=== PATIENT | female | born 1950 | race Caucasian/White ===

== ENCOUNTER → 2023-12-19 07:26 | Outpatient (REF) | payer MEDICARE, OTHER, SELFPAY ==
[2023-12-19 09:02] LABS: % Basophils 0.6 % (0-2); % Eosinophils 1.4 % (0-6); % Immature Granulocytes 0.2 % (0-0.5); % Monocytes 7.9 % (1.7-9.3); % Neutrophils 41.9 % (42.2-75.2); Absolute Eosinophils 0.1 10^3/uL (0-0.7); Absolute Lymphocytes 2.4 10^3/uL (1.2-3.4); Absolute Monocytes 0.4 10^3/uL (0.1-0.6); Absolute Neutrophils 2.1 10^3/uL (1.4-6.5); Hematocrit 38.8 % (37.0-47.0); Hemoglobin 13.7 g/dL (12.0-16.0); Mean Corp Hgb Conc. 35.3 g/dL (33.0-37.0); Mean Corpuscular Hgb 33.1 pg (27.0-31.0); Mean Corpuscular Volume 93.7 fL (81.0-99.0); Mean Platelet Volume 9.7 fL (7.4-10.4); Nucleated Red Blood Cells % 0 %; Platelet Count 233 10^3/uL (130-400); Red Blood Cell Count 4.14 10^6/uL (4.20-5.40); Red Cell Dist. Width 12.5 % (11.5-14.5)
[2023-12-19 09:25] LABS: ALT (SGPT) 18 U/L (0-35); AST (SGOT) 27 U/L (14-36); Albumin 4.5 g/dl (3.5-5.0); Alkaline Phosphatase 67 U/L (38-126); Blood Urea Nitrogen 17 mg/dl (7-17); Calcium 9.8 mg/dl (8.4-10.2); Carbon Dioxide 27 mmol/L (22-30); Chloride 101 mmol/L (98-107); Glucose 92 mg/dl (70-99); HDL Cholesterol 100 mg/dl; LDL Cholesterol, Calculated 57 mg/dl; Sodium 136 mmol/L (135-145); Total Bilirubin 0.6 mg/dl (0.2-1.3); Total Cholesterol 173 mg/dl (50-199); Triglyceride 84 mg/dl (10-149); Very Low Density Lipoprotein 16 mg/dl (0-30); eGFR > 60.00
[2023-12-19 09:30] LABS: Potassium 4.9 mmol/L (3.5-5.1)
== END ==
LOC: HWLAB 07:26
PROVIDERS: ATTENDING PHYSICIAN Family Medicine
DX: E78.00 Pure hypercholesterolemia, unspecified (principal); Z00.00 Encounter for general adult medical examination without abnormal findings; D72.819 Decreased white blood cell count, unspecified
CPT/HCPCS: 36415; 80053; 80061; 85025

== ENCOUNTER → 2024-05-15 15:30 | Outpatient (REF) | payer OTHER, SELFPAY | LOC: HWRAD 15:30 | PROVIDERS: ATTENDING PHYSICIAN Family Medicine | DX: S80.01XA Contusion of right knee, initial encounter (principal) | CPT/HCPCS: 73564 ==

== ENCOUNTER → 2024-12-30 07:43 | Outpatient (REF) | payer MEDICARE, OTHER, SELFPAY ==
[2024-12-30 09:20] LABS: % Basophils 0.7 % (0-2); % Eosinophils 2.4 % (0-6); % Lymphocytes 46.3 % (20.5-51.1); % Monocytes 8.4 % (1.7-9.3); % Neutrophils 42.2 % (42.2-75.2); Absolute Eosinophils 0.1 10^3/uL (0-0.7); Absolute Lymphocytes 1.9 10^3/uL (1.2-3.4); Absolute Monocytes 0.4 10^3/uL (0.1-0.6); Absolute Neutrophils 1.8 10^3/uL (1.4-6.5); Hemoglobin 13.1 g/dL (12.0-16.0); Mean Corp Hgb Conc. 33.6 g/dL (33.0-37.0); Mean Corpuscular Hgb 32.2 pg (27.0-31.0); Mean Corpuscular Volume 95.8 fL (81.0-99.0); Mean Platelet Volume 9.9 fL (7.4-10.4); Nucleated Red Blood Cells % 0 %; Platelet Count 203 10^3/uL (130-400); Red Blood Cell Count 4.07 10^6/uL (4.20-5.40); Red Cell Dist. Width 12.3 % (11.5-14.5); White Blood Cell Count 4.2 10^3/uL (4.8-10.8)
[2024-12-30 09:48] LABS: ALT (SGPT) 18 U/L (0-35); AST (SGOT) 24 U/L (14-36); Albumin 4.3 g/dl (3.5-5.0); Alkaline Phosphatase 59 U/L (38-126); Blood Urea Nitrogen 15 mg/dl (7-17); Calcium 9.6 mg/dl (8.4-10.2); Carbon Dioxide 28 mmol/L (22-30); Chloride 106 mmol/L (98-107); Glucose 93 mg/dl (70-99); HDL Cholesterol 90 mg/dl; LDL Cholesterol, Calculated 60 mg/dl; Potassium 4.6 mmol/L (3.5-5.1); Sodium 141 mmol/L (135-145); Total Bilirubin 0.7 mg/dl (0.2-1.3); Total Cholesterol 171 mg/dl (50-199); Total Protein 6.6 g/dl (6.3-8.2); Triglyceride 107 mg/dl (10-149); Very Low Density Lipoprotein 21 mg/dl (0-30); eGFR > 60.00
== END ==
LOC: HWLAB 07:43
PROVIDERS: ATTENDING PHYSICIAN Family Medicine
DX: E78.00 Pure hypercholesterolemia, unspecified (principal); Z00.00 Encounter for general adult medical examination without abnormal findings
CPT/HCPCS: 36415; 80053; 80061; 85025

== ENCOUNTER 2025-01-28 08:52 | Emergency (ER) | payer MEDICARE, OTHER, SELFPAY ==
[2025-01-28 08:54] VITALS: BP 97/53
--- NOTE | 2025-01-28 08:59 | ED.GENMED ---
Addendum entered and electronically signed by Iker Rincon PA-C 01/29/25 07:12:
Both tubes of blood cultures demonstrate gram-negative bacilli. Spoke with patient. Advised that she return soon as possible for further evaluation
Original Note:
History of Present Illness
General
Chief Complaint: Urinary Symptoms
Time Seen by Provider: 01/28/25 08:59
History of Present Illness
History of Present Illness:
TIME OF INITIAL ENCOUNTER: 9 AM
HPI: The patient presents with dysuria ongoing for the past 4 days. She does have some subjective fevers and chills. She has a general unwell feeling including some lightheadedness and dizziness. She has some myalgias as well. She has had some
high blood pressure readings for which she saw eye specialist and lowered her salt intake but does not take any antihypertensives. She had times noted some blood in the urine. She has no back pain or abdominal pain.
EXAM:
GENERAL: Well appearing in no distress
HEENT: Moist oral mucosa
CARDIOVASCULAR: No murmurs, normal heart rate, regular rhythm, No chest wall tenderness
PULMONARY: No respiratory distress, breath sounds are clear and equal
ABDOMEN: Soft with no peritoneal signs, no tenderness, no suprapubic tenderness
NEUROLOGIC: Excellent strength all extremities, no coordination deficits
PSYCHIATRIC: Appropriate mental status, normal insight and judgement
EXTREMITIES: Nontender, no edema, moves all extremities equally
SKIN: No rash, no lesions
NUMBER AND COMPLEXITY OF PROBLEMS ADDRESSED AT THE ENCOUNTER
� Chronic conditions affecting care: High blood pressure not requiring antihypertensives
� Acute Exacerbation and/or Progression of Chronic Illness: This is an acute problem
� Differential Diagnosis includes: UTI, sepsis, bacteremia, very low suspicion for ureteral stone as the patient has no pain
AMOUNT AND/OR COMPLEXITY OF DATA TO BE REVIEWED AND ANALYZED
� I performed an independent evaluation of and my interpretation is:
EKG:
CT:
X-rays:
Laboratory Studies: White count and lactic are normal, very mild creatinine elevation of 1.1
Other:
� Review of other/old records: I reviewed records, the patient had a colonoscopy 2019
� Clinical information was obtained by an independent historian: None needed
� Prescriptions/Medications Considered but not given:
� Further testing considered but not performed:
RISK OF COMPLICATIONS AND/OR MORBIDITY OR MORTALITY OF PATIENT MANAGEMENT
� Social determinants of health affecting care: Lives at home
� Discussion with other providers:
� Escalation of care: The patient presents with dysuria along with general unwell feeling and subjective fevers and chills. Initial blood pressure noted to be low at 97/53 however on reevaluation shortly after arrival without
any intervention, blood pressure at 118/55. She is found to be at least borderline febrile. Will obtain lab and give Tylenol and also give IV fluids.
ANY OTHER UPDATES:
11:40 AM: Although patient has had some borderline low blood pressure readings, she overall feels much improved with a liter of IV fluid. Encourage patient return here if worse or other concerns. We gave a dose of Rocephin and sent a prescription
for Keflex to her pharmacy for UTI. She is well-appearing on reassessment prior to discharge.
Phy Exam
Physical Exam
Physical Exam:
See HPI
Course
Orders/Labs/Results
Orders:
Orders
01/28/25 09:10
0.9% Sodium Chloride 1000 ml [Nss] 1,000 ml IV BOLUS
Acetaminophen [Tylenol] 1,000 mg PO NOW STA
01/28/25 09:23
Complete Blood Count/With Diff Urgent
Comprehensive Metabolic Panel Urgent
Lactic Acid Q4H
Comment: CANCEL 2nd LACTIC ACID IF 1st LACTIC ACID IS LESS THAN 2
Urinalysis Reflex To Culture Urgent
Date Specimen was Collected: 01/28/25
Time Specimen was Collected: 09:08
Urine Microscopic Reflex Cult Urgent
Blood Culture Q30M
DARIUSZ Source: Blood/Venous
Specimen Description:
Urine Culture Urgent
DARIUSZ Source: U
Specimen Description:
Date Specimen was Collected: 01/28/25
Time Specimen was Collected: 09:08
01/28/25 09:24
Blood Culture Q30M
DARIUSZ Source: Blood/Venous
Specimen Description:
01/28/25 10:50
CefTRIAXone [Rocephin] 1,000 mg IV NOW STA
Abnormal Lab Results
01/28/25
09:23
RBC 3.63 L 10^6/uL
(4.20-5.40)
Hgb 11.8 L g/dL
(12.0-16.0)
Hct 33.4 L %
(37.0-47.0)
MCH 32.5 H pg
(27.0-31.0)
Sodium 130 L mmol/L
(135-145)
BUN 19 H mg/dl
(7-17)
Creatinine 1.1 H mg/dL
(0.6-1.0)
Glucose 138 H mg/dl
(70-99)
Urine Ketones 1+ A
(Negative)
Ur Occult Blood Reflex 4+ A
(Negative)
Leukocyte Esterase Rfl 3+ A
(Negative)
Urine Albumin (Reflex) 3+ A
(Neg - Trace)
01/28/25 09:23
01/28/25 09:23
Vital Signs
Blood pressure: 118/55
Initial and Last Documented VS:
Initial Vital Signs
Temp Pulse Resp BP Pulse Ox
37.9 C 89 20 97/53 96
01/28/25 08:54 01/28/25 08:54 01/28/25 08:54 01/28/25 08:54 01/28/25 08:54
Last Documented Vital Signs
Temp Pulse Resp BP Pulse Ox
37.9 C 67 16 105/60 96
01/28/25 08:54 01/28/25 11:11 01/28/25 11:11 01/28/25 11:27 01/28/25 11:11
*Critical Care Note
Total Time (30-74mins, 75-104mins- exclusive of procedures): Not Applicable
ED Attending Note
-
Portions of this chart may have been created with voice recognition software.� Occasional wrong word or��sound alike� substitutions may have occurred due to the inherent limitations of voice recognition software.
Discharge Plan
Departure
Patient Disposition: Home (Routine Discharge)
Date of Disposition: 01/28/25
Time of Disposition: 11:37
Patient with high blood pressure during this ER visit?: Yes
Discharge Problem:
Urinary tract infection
Instructions: Urinary Tract Infection, Adult (DC)
Prescriptions:
New
cephalexin 500 mg tablet
500 mg PO TID Qty: 21 0RF
Referrals:
Terrie Moore, DO [Family Provider] -
Activity Restrictions/Additional Instructions:
Your white blood cell count and lactic acid levels are both normal. Your kidney function is borderline impaired and we did give you IV fluids. Try to stay hydrated. Return here if worse. The urinalysis does suggest signs of infection here.
Urine culture pending. Follow-up with your primary care doctor.
Interventions
Interventions:
*Risk Screen - Suicide Last Done: 01/28/25 08:54
*General Assessment Last Done: 01/28/25 08:54
*Neglect/Abuse Screening Last Done: 01/28/25 08:54
*ED- Fall Risk Assessment Last Done: 01/28/25 09:33
*ED COVID-19 Vaccine History Last Done: 01/28/25 09:33
ED-Female Genitourinary Assessment Last Done: 01/28/25 09:34
Discharge Date and Time
Print Language: BULGARIAN
[2025-01-28] MEDS: NSS 1000 IV (09:26)
[2025-01-28] MEDS: TYLENOL 1000 MG PO (09:30)
[2025-01-28 09:33] VITALS: BMI 27.2
[2025-01-28 09:34] VITALS: BP 118/55
[2025-01-28 09:48] LABS: ALT (SGPT) 27 U/L (0-35); AST (SGOT) 26 U/L (14-36); Albumin 3.8 g/dl (3.5-5.0); Alkaline Phosphatase 89 U/L (38-126); Blood Urea Nitrogen 19 mg/dl (7-17); Calcium 8.9 mg/dl (8.4-10.2); Carbon Dioxide 23 mmol/L (22-30); Chloride 103 mmol/L (98-107); Estimated Creatinine Clearance 42 ml/min; Glucose 138 mg/dl (70-99); Potassium 4.3 mmol/L (3.5-5.1); Sodium 130 mmol/L (135-145); Total Bilirubin 1.2 mg/dl (0.2-1.3); Total Protein 6.4 g/dl (6.3-8.2); eGFR 53.39
[2025-01-28 09:53] LABS: Hematocrit 33.4 % (37.0-47.0); Hemoglobin 11.8 g/dL (12.0-16.0); Mean Corp Hgb Conc. 35.3 g/dL (33.0-37.0); Mean Corpuscular Hgb 32.5 pg (27.0-31.0); Mean Platelet Volume 9.7 fL (7.4-10.4); Platelet Count 154 10^3/uL (130-400); Red Blood Cell Count 3.63 10^6/uL (4.20-5.40); Red Cell Dist. Width 12.1 % (11.5-14.5)
[2025-01-28 10:00] VITALS: BP 101/55
[2025-01-28 10:36] LABS: Urine Albumin 3+ (Neg - Trace); Urine Bilirubin Negative (Negative); Urine Character Cloudy (Clear); Urine Color Yellow; Urine Glucose Negative (Negative); Urine Ketone 1+ (Negative); Urine Leukocyte 3+ (Negative); Urine Nitrite Negative (Negative); Urine Occult Blood 4+ (Negative); Urine Urobilinogen 1+ (Neg - 1+)
[2025-01-28] MEDS: ROCEPHIN 1000 MG IV (11:07)
[2025-01-28 11:11] VITALS: BP 94/55
[2025-01-28 11:14] LABS: Urine Squamous Cell 16-20 /LPF (Few)
[2025-01-28 11:27] VITALS: BP 105/60
[2025-01-28 11:38] LABS: Urine Amorphous Seen; Urine Urothelial Cell 26-30 /LPF (FEW)
[2025-01-28 11:41] LABS: Urine Bacteria Many (Negative); Urine White Cell >100 /HPF (0-5)
[2025-01-28 12:24] LABS: Absolute Neutrophils -Man Diff 8.2 10^3/uL (1.4-6.5); Band Neutrophils 9 % (0-3); Lymphocytes 4 % (20-51); Monocytes 4 % (2-9); Normal RBC Morphology Yes; Segmented Neutrophils 83 % (42-75)
[2025-01-28 12:25] LABS: Platelets Checked Yes; Total Cells Counted 100
[2025-01-28 12:36] LABS: Toxic Granulation 1+
== END 2025-01-28 11:59 | disposition home or self-care (01) ==
LOC: EMR 08:52
PROVIDERS: EMERGENCY PHYSICIAN Emergency Medicine; FAMILY PHYSICIAN Family Medicine
DX: N39.0 Urinary tract infection, site not specified (principal); R42 Dizziness and giddiness; R03.0 Elevated blood-pressure reading, without diagnosis of hypertension
CPT/HCPCS: 96374; 96361; 99284; 80053; 81003; 81015; 83605; 85025; 87040; 87077; 87086; 87088; 87154; 87186; 87205

== ENCOUNTER 2025-01-29 08:09 | Emergency (ER) | payer MEDICARE, OTHER, SELFPAY ==
[2025-01-29 08:11] VITALS: BP 127/63
[2025-01-29 08:24] VITALS: BMI 28.3
[2025-01-29] MEDS: NSS 500 IV (08:43)
--- NOTE | 2025-01-29 08:46 | ED.GENMED ---
History of Present Illness
General
Chief Complaint: Urinary Symptoms
Source: patient
Time Seen by Provider: 01/29/25 08:15
History of Present Illness
History of Present Illness:
74-year-old female presents to the emergency room after receiving a phone call advising her to come back. Patient had a visit here to the emergency room yesterday because of dysuria as well as abnormal color of her urine. Patient also was
complaining of some lightheadedness and dizziness. She received IV fluids, a dose of IV antibiotics for suspected urinary tract infection and was discharged. She did receive a prescription for Keflex. Patient received a phone call today that her
blood culture was growing a bacteria and that she should come back for reevaluation. Patient feels a little bit weak and not herself but not terribly ill. She is tolerating oral intake. She did measure her temperature last night and it was 99.
She denies abdominal pain, flank pain, nausea or vomiting.
Phy Exam
Physical Exam
Physical Exam:
General: Awake, Alert, Oriented X3. No acute distress.
Vitals: unremarkable
Head: Atraumatic
Eyes: Pupils equal, EOMI
Throat: Airway intact, no exudates
Neck: Trachea midline
Lungs: Clear and equal b/l
Heart: Regular rate, no murmurs
Abd: Soft, Nontender, No pulsatile mass
Neuro: Nonfocal
Skin: Warm, dry, no rash
Extremities: pulses equal b/l, no edema
Course
Orders/Labs/Results
Orders:
Orders
01/29/25 08:35
0.9% Sodium Chloride 500 ml [Nss] 500 ml IV BOLUS
01/29/25 08:41
Basic Metabolic Panel Urgent
Complete Blood Count/With Diff Urgent
Lactic Acid Q4H
Comment: CANCEL 2nd LACTIC ACID IF 1st LACTIC ACID IS LESS THAN 2
01/29/25 08:46
CefTRIAXone [Rocephin] 1,000 mg IV NOW STA
Abnormal Lab Results
01/29/25
08:41
RBC 3.58 L 10^6/uL
(4.20-5.40)
Hgb 11.5 L g/dL
(12.0-16.0)
Hct 32.9 L %
(37.0-47.0)
MCH 32.1 H pg
(27.0-31.0)
Absolute Lymphs (auto) 0.7 L 10^3/uL
(1.2-3.4)
Neutrophils % 82.8 H %
(42.2-75.2)
Lymphocytes % 9.4 L %
(20.5-51.1)
Sodium 131 L mmol/L
(135-145)
BUN 18 H mg/dl
(7-17)
Glucose 157 H mg/dl
(70-99)
01/29/25 08:41
01/29/25 08:41
Vital Signs
Initial and Last Documented VS:
Initial Vital Signs
Temp Pulse Resp BP Pulse Ox
99.2 F 84 18 127/63 99
01/29/25 08:11 01/29/25 08:11 01/29/25 08:11 01/29/25 08:11 01/29/25 08:11
Last Documented Vital Signs
Temp Pulse Resp BP Pulse Ox
99.2 F 78 18 116/63 98
01/29/25 08:11 01/29/25 08:59 01/29/25 08:59 01/29/25 08:59 01/29/25 08:59
MDM/Problems Addressed
Differential Diagnosis Includes:
Transient bacteremia, sepsis, pulmonary
MDM/Problems Addressed:
Patient presents because she had positive blood culture as an outpatient. She looks quite stable here. Though she does not feel 100% she certainly does not look acutely ill or unstable. Her vital signs are normal. She is afebrile here. Labs are
unchanged since yesterday. Patient given a dose of Rocephin IV. She had a dose yesterday as well. Effectively there for the patient has received 48 hours of IV antibiotics. We will continue Keflex as an outpatient. No requirement for
hospitalization at this point. Did briefly discuss patient presentation with Dr. Alvarado she is on-call for infectious disease.
*Pulse Oximetry
Patient hypoxic: no
*Critical Care Note
Total Time (30-74mins, 75-104mins- exclusive of procedures): Not Applicable
ED Attending Note
-
Portions of this chart may have been created with voice recognition software.� Occasional wrong word or��sound alike� substitutions may have occurred due to the inherent limitations of voice recognition software.
Discharge Plan
Departure
Patient Disposition: Home (Routine Discharge)
Date of Disposition: 01/29/25
Time of Disposition: 09:51
Patient with high blood pressure during this ER visit?: No
Condition: Good
Discharge Problem:
Acute UTI, Bacteremia
Instructions: Urinary Tract Infection, Adult (DC)
Prescriptions:
No Action
cephalexin 500 mg tablet
500 mg PO TID Qty: 21 0RF
Referrals:
Terrie Moore, DO [Family Provider, Family Practice]
Activity Restrictions/Additional Instructions:
You were asked to come back to the emergency room because your blood culture was positive for bacteria. It appears to be the same bacteria that is causing your urinary tract infection. You have been given a dose of IV antibiotics here that should
cover this. The oral antibiotics you were prescribed should also cover this bacteria. We will call you if there are any necessary changes in your antibiotic. However because your vital signs are normal and you look quite stable we do not believe
you would benefit from staying in the hospital but rather continue your oral antibiotics as an outpatient. Return to the emergency room if you feel like you are getting worse.
Interventions
Interventions:
*Risk Screen - Suicide Last Done: 01/29/25 08:11
*General Assessment Last Done: 01/29/25 08:11
*Neglect/Abuse Screening Last Done: 01/29/25 08:11
*ED- Fall Risk Assessment Last Done: 01/29/25 08:26
*ED COVID-19 Vaccine History Last Done: 01/29/25 08:26
*Nursing Disposition Last Done: 01/29/25 10:39
ED-Female Genitourinary Assessment Last Done: 01/29/25 08:25
Discharge Date and Time
Discharge Date/Time: 01/29/25 10:25
Print Language: BHUTANESE
[2025-01-29 08:48] LABS: % Basophils 0.1 % (0-2); % Immature Granulocytes 0.4 % (0-0.5); % Lymphocytes 9.4 % (20.5-51.1); % Monocytes 7.3 % (1.7-9.3); % Neutrophils 82.8 % (42.2-75.2); Absolute Lymphocytes 0.7 10^3/uL (1.2-3.4); Absolute Monocytes 0.5 10^3/uL (0.1-0.6); Absolute Neutrophils 5.9 10^3/uL (1.4-6.5); Hematocrit 32.9 % (37.0-47.0); Hemoglobin 11.5 g/dL (12.0-16.0); Mean Corpuscular Hgb 32.1 pg (27.0-31.0); Mean Corpuscular Volume 91.9 fL (81.0-99.0); Mean Platelet Volume 10.1 fL (7.4-10.4); Nucleated Red Blood Cells % 0 %; Platelet Count 166 10^3/uL (130-400); Red Blood Cell Count 3.58 10^6/uL (4.20-5.40); Red Cell Dist. Width 12.2 % (11.5-14.5); White Blood Cell Count 7.1 10^3/uL (4.8-10.8)
[2025-01-29] MEDS: ROCEPHIN 1000 MG IV (08:54)
[2025-01-29 08:59] VITALS: BP 116/63
[2025-01-29 09:03] LABS: Blood Urea Nitrogen 18 mg/dl (7-17); Calcium 8.8 mg/dl (8.4-10.2); Carbon Dioxide 22 mmol/L (22-30); Chloride 102 mmol/L (98-107); Estimated Creatinine Clearance 52 ml/min; Glucose 157 mg/dl (70-99); Potassium 4.3 mmol/L (3.5-5.1); Sodium 131 mmol/L (135-145); eGFR 59.86
== END 2025-01-29 10:25 | disposition home or self-care (01) ==
LOC: EMR 08:09
PROVIDERS: EMERGENCY PHYSICIAN Emergency Medicine; FAMILY PHYSICIAN Family Medicine
DX: N39.0 Urinary tract infection, site not specified (principal); R78.81 Bacteremia
CPT/HCPCS: 96374; 96361; 99284; 80048; 83605; 85025

== ENCOUNTER 2025-04-02 06:29 | Day surgery (SDC) | payer MEDICARE, OTHER, SELFPAY | END 2025-04-02 14:21 | disposition home or self-care (01) | LOC: GI 06:29 | PROVIDERS: ATTENDING PHYSICIAN Internal Medicine | DX: Z12.11 Encounter for screening for malignant neoplasm of colon (principal); D12.5 Benign neoplasm of sigmoid colon; K63.5 Polyp of colon; K55.20 Angiodysplasia of colon without hemorrhage; K57.30 Diverticulosis of large intestine without perforation or abscess without bleeding; K64.9 Unspecified hemorrhoids; Z86.0101 Personal history of adenomatous and serrated colon polyps | CPT/HCPCS: 45385; 45380; 88305 ==